=== PATIENT | male | born 2000 | race Caucasian/White ===

== ENCOUNTER → 2022-11-06 | Outpatient (CLI) | payer BC, OTHER ==
[~2022-11-06] MED LIST: GADOTERATE 0.5 MMOL/ML (CLARISCAN) 20 ML VIAL IV ONE
--- NOTE | 2022-11-06 15:34 | Diagnostic Imaging Report ---
Clinical indications: Patient has several head injuries, by falling and things falling on him. Patient feels cloudy. Patient has headaches. Exam: MRI of the brain performed without and with 18 cc of Clariscan IV contrast. Sequences include axial DWI, ADC map, axial gradient echo, axial T2, axial FLAIR, axial T1, axial T1 post IV contrast, coronal T1 fat-sat post IV contrast, and sagittal T1 post IV contrast. Comparison: None. Findings: There is no evidence of acute cerebral infarct, intracranial hemorrhage, or gross mass effect. The brain parenchymal volume appears appropriate for patient's age. There is normal cuellar-white matter distinction. There is no significant midline shift or herniation. Visualized [place] vascular structures are unremarkable. The pituitary gland, sella, and suprasellar regions are unremarkable as visualized. There is no evidence of hydrocephalus. The basal cisterns are unremarkable. The skull, extracranial soft tissue, and orbits are unremarkable. The paranasal sinuses are unremarkable. Temporal bones show no significant abnormality. IMPRESSION: Unremarkable MRI of the brain. Dictated by: Dictated on workstation # [id number]
== END ==
LOC: RAD 13:34
PROVIDERS: ATTEND Nurse Practitioner Family
DX: G44.89 Other headache syndrome (principal); R41.3 Other amnesia; F41.1 Generalized anxiety disorder; F19.10 Other psychoactive substance abuse, uncomplicated; F40.01 Agoraphobia with panic disorder; F33.1 Major depressive disorder, recurrent, moderate
CPT/HCPCS: 70553